=== PATIENT | female | born 1955 | race Caucasian/White ===

== ENCOUNTER → 2016-10-24 | Outpatient (CLI) | payer OTHER ==
--- NOTE | 2016-10-25 14:30 | Diagnostic Imaging Report ---
Thyroid scan and uptake Technique: After the oral administration of 183 ?Ci of I-123 capsule, 4 hour and 24-hour uptake is measured and plantar images over the thyroid gland obtained. Indication: Thyroid nodules FINDINGS: Thyroid uptake at 4 hours is 13 %, and the at 24 hours is 23 %. Planar images demonstrate no evidence of a cold nodule. IMPRESSION: Normal thyroid uptake and scan. Dictated by: Dictated on workstation # [id number]
== END ==
LOC: CARD 11:40
PROVIDERS: ATTEND Nurse Practitioner Family
DX: E04.1 Nontoxic single thyroid nodule (principal)
CPT/HCPCS: 78014

== ENCOUNTER → 2016-12-29 | Outpatient (CLI) | payer OTHER ==
[~2016-12-29] VITALS: Ht 167.6 cm; Wt 74.8 kg
--- NOTE | 2016-12-29 10:35 | Progress Note-Pre Operative ---
Pre-Operative Progress Note H&P Reviewed The H&P was reviewed, patient examined and no changes noted. Date H&P Reviewed: December 29, 2016 Time H&P Reviewed: 10:31 Pre-Operative Diagnosis: Thyroid nodule TANNER MIDDLETON MD December 29, 2016 10:35 am
--- NOTE | 2016-12-29 10:36 | Progress Note-Post Operative ---
Post-Operative Progess Note Surgeon (s)/Product Assurance Engineer (s) Surgeon TANNER MIDDLETON MD Product Assurance Engineer n/a Pre-Operative Diagnosis Thyroid nodule Post-Operative Diagnosis same Post-Op Procedure Note Date of Procedure: December 29, 2016 Name of Procedure Performed: US guided FNA of Thyroid NOdule Description & Findings Description and Findings: n/a Anesthesia Type local Estimated Blood Loss minimal Packing none. Specimen(s) collected/removed slides and cytology to pathology TANNER MIDDLETON MD December 29, 2016 10:36 am
[2016-12-29 10:48] VITALS: BP 112/80
--- NOTE | 2016-12-29 12:07 | Diagnostic Imaging Report ---
EXAMINATION: Dedicated thyroid ultrasound performed with ultrasound guidance provided for FNA performed by Dr. Ferreira. Indication: Thyroid nodule FINDINGS: Ultrasound images demonstrate a right medial solid thyroid nodule. IMPRESSION: Ultrasound guidance provided for medial right thyroid nodule near the isthmus for FNA. Dictated by: Dictated on workstation # [id number]
== END ==
LOC: RAD 10:29
PROVIDERS: ATTEND Otolaryngology Otolaryngology/Facial Plastic Surgery
DX: E04.1 Nontoxic single thyroid nodule (principal)
CPT/HCPCS: 76942

== ENCOUNTER → 2017-04-19 | Outpatient (CLI) | payer OTHER ==
[~2017-04-19] VITALS: Ht 167.6 cm; Wt 74.8 kg
[2017-04-19 10:15] VITALS: BP 122/68
[2017-04-19 10:40] VITALS: BP 124/68
--- NOTE | 2017-04-19 11:24 | Diagnostic Imaging Report ---
EXAMINATION: Dedicated thyroid ultrasound performed with ultrasound guidance provided for FNA performed by Dr. Ferreira. Indication: Thyroid nodule FINDINGS: Ultrasound images demonstrate a solid right thyroid nodule. IMPRESSION: Ultrasound guidance provided for right thyroid nodule FNA. Dictated by: Dictated on workstation # [id number]
== END ==
LOC: RAD 10:20
PROVIDERS: ATTEND Otolaryngology Otolaryngology/Facial Plastic Surgery
DX: E04.1 Nontoxic single thyroid nodule (principal)
CPT/HCPCS: 76942